=== PATIENT | female | born 1950 ===

== ENCOUNTER 2019-07-09 13:14 | Emergency (ER) | payer OTHER ==
[~2019-07-09] VITALS: Ht 160 cm; Wt 59.9 kg
[~2019-07-09 13:14] MED LIST: EVISTA60 MG
[2019-07-09] MEDS ORDERED: ELIQUIS2.5 MG (13:30)
[2019-07-09] MEDS ORDERED: TAMBOCOR150 MG (13:31)
[2019-07-09] MEDS ORDERED: LOSARTAN POTASS50 MG (13:31)
[2019-07-09] MEDS ORDERED: TOPROL XL50 MG (13:33)
[2019-07-09] MEDS ORDERED: DITROPAN5 MG (13:33)
[2019-07-09] MEDS ORDERED: LIPITOR20 MG (13:33)
== END 2019-07-10 06:59 | disposition home or self-care (01) ==
LOC: ER 13:14
DX: K59.09 Other constipation (principal)

== ENCOUNTER → 2021-01-08 15:00 | Outpatient (CLI) | payer OTHER ==
[~2021-01-08 15:00] MED LIST changes: +DITROPAN5 MG; +ELIQUIS2.5 MG; +LIPITOR20 MG; +LOSARTAN POTASS50 MG; +TAMBOCOR150 MG; +TOPROL XL50 MG
== END | disposition home or self-care (01) ==
LOC: PPH VACUNA 15:00
PROVIDERS: ATTEND Emergency Medicine Pediatric Emergency Medicine
DX: Z23 Encounter for immunization (principal)

== ENCOUNTER 2021-08-18 08:00 | Outpatient (CLI) | payer OTHER | END 2021-08-18 08:30 | disposition home or self-care (01) | LOC: PPH VACUNA 08:00 | PROVIDERS: ATTEND Emergency Medicine Pediatric Emergency Medicine | DX: Z23 Encounter for immunization (principal) ==